=== PATIENT | male | born 1940 | race Two or more races ===

== ENCOUNTER 2017-08-30 10:42 | Outpatient (CLI) | payer OTHER | END 2017-08-30 11:09 | disposition home or self-care (01) | LOC: RAD 10:42 | DX: Z76.89 Persons encountering health services in other specified circumstances (principal) ==

== ENCOUNTER 2017-08-30 10:46 | Outpatient (CLI) | payer OTHER | END 2017-08-30 11:10 | disposition home or self-care (01) | LOC: TOM 10:46 | DX: M21.751 Unequal limb length (acquired), right femur (principal) ==

== ENCOUNTER 2017-09-28 09:18 | Outpatient (CLI) | payer OTHER | END 2017-09-28 09:26 | disposition home or self-care (01) | LOC: RAD 501 09:18 | DX: M19.071 Primary osteoarthritis, right ankle and foot (principal); M76.822 Posterior tibial tendinitis, left leg ==